=== PATIENT | male | born 1955 | race Caucasian/White ===

== ENCOUNTER 2018-12-22 09:55 | Day surgery (SDC) | payer BC ==
[~2018-12-22 09:55] MED LIST: Lactated Ringers 1,000 ML IV SCH; Lidocaine 1% 6 ML ONE; Lidocaine 1%/Sod Bicarbonate in NS 8.4% 1 ML Syringe IDERM PRN; Propofol 200 MG/20 ML SDV ONE; Sodium Chloride 0.9% 10 ML Syringe FLUSH PRN; fentaNYL 100 MCG/2 ML SDV ONE
--- NOTE | 2018-12-22 11:07 | PCM.PREANE ---
Preanesthetic Assessment - Procedure Proposed Procedure: Diagnostic colonoscopy - Anesthesia/Transfusion/Family Hx Anesthesia History: Prior Anesthesia Without Reaction Family History of Anesthesia Reaction: No Transfusion History: No Prior Transfusion(s) - Review of Systems General: No Symptoms Pulmonary: No Symptoms Cardiovascular: Other (CAD, ND, CABG 2018, RBBB, HTN, HLD, still has some exercise indiced chest pain s/p CABG but cleared by cardiology for colonoscopy, Echo- EF 50-55%) Gastrointestinal: No Symptoms Neurological: No Symptoms Other: Reports: Easy Bleeding (on asa 81mg, hasnt taken for 2 days ) - Physical Assessment NPO Status Date: 12/22/18 NPO Status Time: 01:00 O2 Sat by Pulse Oximetry: 99 Respiratory Rate: 16 Vital Signs: Last Vital Signs Temp 36.8 C 12/22/18 10:05 Pulse 71 12/22/18 10:05 Resp 16 12/22/18 10:05 BP 151/99 H 12/22/18 10:20 Pulse Ox 99 12/22/18 10:05 Height: 1.73 m Weight: 89.811 kg ASA Class: 3 Mental Status: Alert & Oriented x3 Airway Class: Mallampati = 2 Dentition: Reports: Normal Dentition Thyro-Mental Finger Breadths: 3 Mouth Opening Finger Breadths: 3 ROM/Head Extension: Full Lungs: Clear to Auscultation, Normal Respiratory Effort Cardiovascular: Regular Rate, Regular Rhythm - Allergies Allergies/Adverse Reactions: Allergies Allergy/AdvReac Type Severity Reaction Status Date / Time rosuvastatin [From Crestor] Allergy Cannot Verified 12/21/18 13:09 Remember - Blood Blood Available: No Product(s) Available: None - Anesthesia Plan Beta Antonio: Metoprolol Med Last Dose Date: 12/22/18 Med Last Dose Time: 06:30 - Acknowledgements Anesthesia Type Planned: MAC Pt an Appropriate Candidate for the Planned Anesthesia: Yes Alternatives and Risks of Anesthesia Discussed w Pt/Guardian: Yes Pt/Guardian Understands and Agrees with Anesthesia Plan: Yes PreAnesthesia Questionnaire HEENT History: Reports: Impaired Vision, Other (See Below) Other HEENT History: wears glasses Cardiovascular History: Reports: CAD, High Cholesterol, Hypertension, ND Respiratory History: Reports: None Gastrointestinal History: Reports: None Genitourinary History: Reports: None 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 Neurological History: Reports: None Psychiatric History: Reports: None Endocrine/Metabolic History: Reports: None Immunologic History: Reports: None Oncologic (Cancer) History: Reports: None Dermatologic History: Reports: None - Past Surgical History Head Surgeries/Procedures: Reports: None HEENT Surgical History: Reports: Tonsillectomy, Other (See Below) Other HEENT Surgeries/Procedures: nasal cauterization Cardiovascular Surgical History: Reports: Coronary Artery Bypass Respiratory Surgical History: Reports: None GI Surgical History: Reports: None Female Surgical History: Reports: None Male Surgical History: Reports: None Endocrine Surgical History: Reports: None Neurological Surgical History: Reports: None Musculoskeletal Surgical History: Reports: Other (See Below) Other Musculoskeletal Surgeries/Procedures:: right elbow surgery Oncologic Surgical History: Reports: None Dermatological Surgical History: Reports: None - SUBSTANCE USE Smoking Status *Q: Never Smoker Second Hand Smoke Exposure: No Recreational Drug Use History: No - HOME MEDS Home Medications: Home Meds Aspirin 162 mg PO DAILY 12/21/18 [History] Metoprolol Succinate 100 mg PO DAILY 12/21/18 [History] Multivitamin [Poly-Vitamin] 1 tab PO DAILY 12/21/18 [History] Sawyer-3/DHA/Epa/Fish Oil [Sawyer-3 Fish Oil 1,000 MG Sfgl] 2,000 mg PO DAILY [History] Ubidecarenone [Co Q-10] 100 mg PO DAILY 12/21/18 [History] atorvaSTATin Calcium [Atorvastatin Calcium] 40 mg PO BEDTIME 12/21/18 [History] - CURRENT (IN HOUSE) MEDS Current Meds: Current Medications Lactated Ringer's (Ringers, Lactated) 1,000 mls @ 125 mls/hr IV ASDIRECTED MELA Stop: 12/22/18 23:00 Lidocaine/Sodium Bicarbonate (Buffered Lidocaine 1% In Ns 8.4%) 0.25 ml IDERM ONETIME PRN PRN Reason: Prior to IV Start Stop: 12/22/18 18:00 Sodium Chloride (Saline Flush) 10 ml FLUSH ASDIRECTED PRN PRN Reason: Keep Vein Open Stop: 12/22/18 18:00 Discontinued Medications Fentanyl (Sublimaze) Confirm Administered Dose 100 mcg .ROUTE .STK-MED ONE Stop: 12/22/18 08:28 Lidocaine HCl (Xylocaine-Mpf 1%) Confirm Administered Dose 6 mls @ as directed .ROUTE .STK-MED ONE Stop: 12/22/18 08:24 Propofol (Diprivan 20 Ml) Confirm Administered Dose 200 mg .ROUTE .STK-MED ONE Stop: 12/22/18 08:24
--- NOTE | 2018-12-22 12:30 | PCM.PRNOTE ---
- Free Text/Narrative Note: Operative Report Date of Surgery/Procedure: December 22, 2018 Operative Procedure: Colonoscopy to cecum with biopsy Pre Op Diagnosis: Positive FIT test Post-Op Diagnosis: Colon polyps Surgeon: Brittany Lopez MD Anesthesia Technique: MAC Anesthesia Provider: Sheldon Cool CRNA IV Fluid Replacement, Intraop: 800cc Output, Urine Amount: 0cc EBL : 0cc Findings: 1. Ascending colon polyp 2. Hepatic flexure polyp 3. Sigmoid polyp 4. Rectal polyp Specimens: 1. Ascending colon polyp 2. Hepatic flexure polyp 3. Sigmoid polyp 4. Rectal polyp Indication: The patient is a 63 year-old gentleman who presented to the outpatient clinic requesting a colonoscopy after having a positive FIT test. The patient has a history of recent CABG surgery, and obtained cardiac clearance prior to proceeding. We discussed the procedure of a colonoscopy including the polypectomy and biopsy. Risks of bleeding and perforation were discussed, the patient understood and wished to proceed. Written and consent was obtained Description of the procedure: The patient was brought to the endoscopy suite and placed in the left lateral decubitus position. Appropriate monitors were applied. The patient was given MAC anesthesia. An anorectal examination was performed, revealing no abnormality. The scope was placed into the rectum and advanced to cecum with No significant difficulty. The patients cecum was entered, and the ileocecal valve and appendiceal orifice were identified and normal. At this point, the scope was withdrawn, paying careful attention to the mucosa. The patient had good bowel prep, allowing for visualization of 80-85 % of the mucosa. . A polyp in the ascending colon was noted measuring 1-2 mm and was flat. This was removed with cold biopsy forceps. There was an additional polyp in the hepatic flexure that was semi-pedunculated and measured 2-3 mm. This was removed with cold biopsy forceps. There was an additional sigmoid polyp measuring approximately 1-2 mm that was flat. This was removed with cold biopsy forceps. There was a sessile appearing polyp in the rectum measuring 4-5 mm area. This was removed with cold biopsy forceps. In the rectum, the scope was retroflexed and no abnormalities were noted, except for some hemorrhoidal tissue. The scope was placed back in the lumen and the excess air was aspirated. The patient tolerated the procedure well. Complications: none apparent Condition: Good, transported to PACU in stable condition Brittany Lopez MD General Surgery
--- NOTE | 2018-12-22 15:02 | PCM.OPNOTE ---
- General Post-Op/Procedure Note Date of Surgery/Procedure: 12/22/18 Operative Procedure(s): colonoscopy Findings: 1. Ascending colon polyp 2. Hepatic flexure polyp 3. Sigmoid polyp 4. Rectal polyp Pre Op Diagnosis: Positive FIT test Post-Op Diagnosis: Colon polyps Anesthesia Technique: MAC Primary Surgeon: Brittany Lopez Anesthesia Provider: Sheldon Cool Pathology: 1. Ascending colon polyp 2. Hepatic flexure polyp 3. Sigmoid polyp 4. Rectal polyp Fluid Replacement, Intraop: 800 Output, Urine Amount: 0 EBL in mLs: 0 Complications: None apparent Condition: Good Free Text/Narrative:: Intake & Output 12/22/18 12/22/18 12/22/18 06:59 14:59 22:59 Intake Total 350 Balance 350
== END 2018-12-22 13:00 | disposition home or self-care (01) ==
LOC: JD.SDS 09:55
PROVIDERS: ATTEND Surgery
DX: D12.2 Benign neoplasm of ascending colon (principal); D12.8 Benign neoplasm of rectum; K51.40 Inflammatory polyps of colon without complications; K63.5 Polyp of colon; K64.9 Unspecified hemorrhoids; I25.10 Atherosclerotic heart disease of native coronary artery without angina pectoris; I10 Essential (primary) hypertension; I45.10 Unspecified right bundle-branch block; I25.2 Old myocardial infarction; E78.5 Hyperlipidemia, unspecified; Z88.8 Allergy status to other drugs, medicaments and biological substances; Z95.1 Presence of aortocoronary bypass graft; Z79.82 Long term (current) use of aspirin; Z79.899 Other long term (current) drug therapy
CPT/HCPCS: 45380; J2001; J2704; J3010; J7120; 00811